=== PATIENT | male | born 1955 | race African-American/Black ===

== ENCOUNTER 2019-02-16 14:01 | Inpatient (IN) | payer OTHER ==
[~2019-02-16] VITALS: Ht 182.9 cm; Wt 84.3 kg
[2019-02-16] MEDS ORDERED: BP MEDS X 2 PO (14:19)
[2019-02-16 14:22] LABS: GLUCOSE,POINT OF CARE 108 MG/DL (70-110)
[2019-02-16] MEDS ORDERED: IOVERSOL 350 MG/ML 100 ML VIAL ONE (14:23)
[2019-02-16] MEDS ORDERED: SODIUM CHLORIDE 0.9% 100 ML ONE (14:23)
[2019-02-16 14:44] LABS: BASOPHILS % (AUTO) 0.7 % (0.0-2.0); EOSINOPHILS % (AUTO) 4.7 % (1.0-6.0); HEMATOCRIT 32.8 % (41-53); HEMOGLOBIN 10.2 g/dL (13.5-17.5); LYMPHOCYTES # (AUTO) 1.8 K/uL (1.0-4.8); LYMPHOCYTES % (AUTO) 28.5 % (22.0-44.0); MEAN CORPUSCULAR HEMOGLOBIN 23.5 pg (26.0-34.0); MEAN CORPUSCULAR HGB CONC 31.1 G/dL (31.0-37.0); MEAN CORPUSCULAR VOLUME 76 fL (80-100); MONOCYTES # (AUTO) 0.6 K/uL (0.1-1.0); MONOCYTES % (AUTO) 9.9 % (2.0-9.0); NEUTROPHILS # (AUTO) 3.6 K/uL (1.8-7.7); NEUTROPHILS % (AUTO) 56.2 % (40.0-70.0); PLATELET COUNT (AUTO) 476 K/uL (150-450); RED BLOOD CELL COUNT(AUTO) 4.34 MIL/uL (4.50-5.90); RED CELL DISTRIBUTION WIDTH 21.3 % (11.5-14.5)
[2019-02-16 15:03] LABS: ANION GAP 7 mmol/L (8-16); CALCIUM, TOTAL 9.1 mg/dL (8.8-10.5); CARBON DIOXIDE 30 mmol/L (22-29); CHLORIDE 103 mmol/L (98-107); CREATININE 1.07 mg/dL (0.60-1.30); GLOMERULAR FILTR. RATE CALC > 60 mL/min (>60); GLUCOSE,RANDOM 83 mg/dL (70-110); POTASSIUM 3.9 mmol/L (3.5-5.1); SODIUM SERUM 140 mmol/L (136-145); UREA NITROGEN, BLOOD 13 mg/dL (7-18)
[2019-02-16 15:09] LABS: ALANINE AMINOTRANSFERASE 17 U/L (12-78); ALBUMIN 3.4 g/dL (3.4-5.0); ALKALINE PHOSPHATASE 76 U/L (46-116); ASPARTATE AMINOTRANSFERASE 15 U/L (15-37); BILIRUBIN,TOTAL 0.2 mg/dL (0.1-1.0); TOTAL PROTEIN, SERUM 7.5 g/dL (6.4-8.2)
[2019-02-16 15:27] LABS: PLATELET MORPHOLOGY COMMENT INCREASED
[2019-02-16] MEDS ORDERED: ASPIRIN 325 MG TABLET PO ONE (15:45)
[2019-02-16 15:54] LABS: APPEARANCE,URINE CLEAR (CLEAR); BILIRUBIN,URINE NEGATIVE (NEGATIVE); GLUCOSE, URINE (UA) NEGATIVE (NEGATIVE); KETONES,URINE NEGATIVE (NEGATIVE); LEUKOCYTE ESTERASE ,URINE NEGATIVE (NEGATIVE); NITRATE,URINE NEGATIVE (NEGATIVE); OCCULT BLOOD,URINE NEGATIVE (NEGATIVE); PH,URINE 5.5 (5.0-8.0); PROTEIN,URINE NEGATIVE (NEGATIVE); UROBILINOGEN,URINE 0.2 mg/dL (<=1.0)
[2019-02-16 15:59] LABS: AMPHET/METH SCREEN,URINE POSITIVE (NEGATIVE); BARBITURATE SCREEN, URINE NEGATIVE (NEGATIVE); BENZODIAZEPINES SCREEN,URINE NEGATIVE (NEGATIVE); CANNABINOID SCREEN,URINE POSITIVE (NEGATIVE); COCAINE SCREEN,URINE NEGATIVE (NEGATIVE); METHADONE SCREEN, URINE NEGATIVE (NEGATIVE); OPIATE SCREEN,URINE NEGATIVE (NEGATIVE)
[2019-02-16 16:03] LABS: PHENCYCLIDINE SCREEN,URINE NEGATIVE (NEGATIVE)
[2019-02-16 16:20] LABS: BACTERIA,URINE Few /HPF (None Seen); RBC,URINE 0-2 /HPF (0-2); SQUAMOUS EPITHELIAL CELL,UR Few /LPF (None Seen)
[2019-02-16 17:14] VITALS: BP 160/108
[2019-02-16 19:42] VITALS: BP 145/93
[2019-02-16] MEDS ORDERED: ALBUTEROL SULFATE 2.5 MG/0.5 ML NEB SOLUTION NEB PRN (21:15)
[2019-02-16] MEDS ORDERED: ONDANSETRON HCL 4 MG/2 ML VIAL IVP PRN (21:15)
[2019-02-16] MEDS ORDERED: MORPHINE SULFATE 2 MG/ML SYRINGE IVP PRN (21:15)
[2019-02-16] MEDS ORDERED: HYDROCODONE/ACETAMINOPHEN 5-325 MG TABLET PO PRN (21:15)
[2019-02-16] MEDS ORDERED: MAGNESIUM HYDROXIDE SUSPENSION 30 ML UDCUP PO PRN (21:15)
[2019-02-16] MEDS ORDERED: ACETAMINOPHEN 325 MG TABLET PO PRN (21:15)
[2019-02-16] MEDS ORDERED: IPRATROPIUM BROMIDE 0.5 MG/2.5 ML NEB SOLUTION NEB PRN (21:15)
[2019-02-16] MEDS ORDERED: BISACODYL 10 MG RECTAL RECTAL SUPPOSITORY PR PRN (21:15)
[2019-02-16] MEDS ORDERED: ZOLPIDEM TARTRATE 5 MG TABLET PO PRN (21:15)
[2019-02-16] MEDS ORDERED: ATORVASTATIN CALCIUM 10 MG TABLET PO SCH (22:30)
[2019-02-17 00:04] VITALS: BP 159/91
[2019-02-17] MEDS: HEPARIN SODIUM,PORCINE 5,000 UNITS/ML VIAL SQ SCH ×4 (00:08→23:28)
[2019-02-17 05:43] VITALS: BP 159/91
[2019-02-17 07:00] LABS: CHOL/HDL RATIO 3.2 (4.2-7.3); THYROID STIMULATING HORMONE 0.49 uIU/mL (0.36-3.74)
[2019-02-17] MEDS: DOCUSATE SODIUM 100 MG CAPSULE PO SCH ×2 (07:51→21:00)
[2019-02-17 07:55] VITALS: BP 149/84
[2019-02-17 10:57] VITALS: BP 143/88
[2019-02-17] MEDS: ASPIRIN 81 MG CHEWABLE TABLET PO SCH (12:04)
[2019-02-17] MEDS: ATORVASTATIN CALCIUM 20 MG TABLET PO SCH (12:04)
[2019-02-17 16:25] VITALS: BP 148/82
[2019-02-17 19:25] VITALS: BP 160/82
[2019-02-17] MEDS ORDERED: ATORVASTATIN CALCIUM 10 MG TABLET PO SCH (21:00)
[2019-02-17] MEDS ORDERED: AmLODIPine BESYLATE 5 MG TABLET PO ONE (23:45)
[2019-02-18 00:13] VITALS: BP 166/98
[2019-02-18 05:14] VITALS: BP 154/89
[2019-02-18 07:38] VITALS: BP 146/90
[2019-02-18] MEDS ORDERED: AmLODIPine BESYLATE 5 MG TABLET PO SCH (09:00)
[2019-02-18] MEDS ORDERED: GADOBUTROL 1 MMOL/ML 10 ML VIAL IVP ONE (10:32)
[2019-02-18 11:38] VITALS: BP 158/98
[2019-02-18] MEDS: HEPARIN SODIUM,PORCINE 5,000 UNITS/ML VIAL SQ SCH (11:50)
[2019-02-18] MEDS: ATORVASTATIN CALCIUM 20 MG TABLET PO SCH (11:51)
[2019-02-18] MEDS: ASPIRIN 81 MG CHEWABLE TABLET PO SCH (11:51)
[2019-02-18] MEDS: DOCUSATE SODIUM 100 MG CAPSULE PO SCH (11:51)
[2019-02-18 15:15] LABS: GLUCOMETER DEV NAME(LOC) 5N.2; GLUCOSE,POINT OF CARE 111 MG/DL (70-110)
[2019-02-18 15:26] VITALS: BP 122/76
[2019-02-18] MEDS ORDERED: ASPI81 PO (16:05)
[2019-02-18] MEDS ORDERED: AMLO5TAB9 PO (16:09)
== END 2019-02-18 16:30 | disposition home or self-care (01) | DRG 47 ==
LOC: EMS 14:02 → 5S 16:04
PROVIDERS: ADMIT Hospitalist; ATTEND Hospitalist
DX: G45.9 Transient cerebral ischemic attack, unspecified (principal); G92 Toxic encephalopathy; D64.9 Anemia, unspecified; S76.112A Strain of left quadriceps muscle, fascia and tendon, initial encounter; D47.3 Essential (hemorrhagic) thrombocythemia; F19.10 Other psychoactive substance abuse, uncomplicated; I67.2 Cerebral atherosclerosis; M25.462 Effusion, left knee; I10 Essential (primary) hypertension; M76.52 Patellar tendinitis, left knee; X58.XXXA Exposure to other specified factors, initial encounter; Y93.89 Activity, other specified; Y92.89 Other specified places as the place of occurrence of the external cause; Y99.8 Other external cause status; Z91.19 Patient's noncompliance with other medical treatment and regimen
CPT/HCPCS: 70496; 70553; 73721; 82948; 83036; 84443; 86850; 86900; 86901; 87086; 92610; 93005; 93880; 97116; 97162; 97165; 97530; 97535; 99291; A9585; J1644; J7050

== ENCOUNTER 2023-03-16 13:28 | Emergency (ER) | payer MEDICARE, OTHER ==
[~2023-03-16] VITALS: Ht 182.9 cm; Wt 81.8 kg
[~2023-03-16 13:28] MED LIST: AMLO-257 PO; ASPI-1450 PO
[2023-03-16 13:33] VITALS: TEMP 98.8
[2023-03-16 13:57] VITALS: BP 170/99; PULSE 82; RESP 16
[2023-03-16] MEDS ORDERED: CLOP75TA32 PO (14:30)
[2023-03-16] MEDS ORDERED: LIDOCAINE 1% 10 ML VIAL SQ ONE (14:30)
[2023-03-16] MEDS ORDERED: SPIR-37 PO (14:30)
[2023-03-16] MEDS ORDERED: ATOR-2 PO (14:30)
[2023-03-16] MEDS ORDERED: EMPA10TA3 PO (14:30)
[2023-03-16] MEDS ORDERED: CEPHALEXIN MONOHYDRATE 500 MG CAPSULE PO ONE (14:30)
[2023-03-16] MEDS ORDERED: CARV25 PO (14:30)
[2023-03-16] MEDS ORDERED: IBUPROFEN 600 MG TABLET PO ONE (14:30)
[2023-03-16] MEDS ORDERED: DOXYCYCLINE HYCLATE 100 MG TABLET PO ONE (14:30)
[2023-03-16] MEDS ORDERED: ACETAMINOPHEN/CODEINE 300-30 MG TABLET PO ONE (14:30)
[2023-03-16] MEDS ORDERED: LOSA100T59 PO (14:30)
[2023-03-16] MEDS ORDERED: IBUP-1554 PO (16:09)
[2023-03-16] MEDS ORDERED: CEPH-558 PO (16:09)
[2023-03-16] MEDS ORDERED: DOXY-354 PO (16:09)
[2023-03-16] MEDS ORDERED: TERB250T90 PO (16:14)
[2023-03-16] MEDS ORDERED: PERTUSS(ACELL),DIPH,TET VAC/PF 0.5 ML SYRINGE IM. ONE (16:15)
== END 2023-03-16 16:34 | disposition home or self-care (01) ==
LOC: EMS 13:28
DX: B35.1 Tinea unguium (principal); L02.511 Cutaneous abscess of right hand; I10 Essential (primary) hypertension
CPT/HCPCS: 99284; 26010; 90715; 90471; J3490

== ENCOUNTER 2024-06-17 14:34 | Emergency (ER) | payer MEDICARE, OTHER ==
[~2024-06-17] VITALS: Ht 182.9 cm; Wt 86.4 kg
[~2024-06-17 14:34] MED LIST changes: +ATOR-2 PO; +CARV25 PO; +CEPH-558 PO; +CLOP75TA32 PO; +DOXY-354 PO; +EMPA10TA3 PO; +IBUP-1554 PO; +LOSA100T59 PO; +SPIR-37 PO; +TERB250T90 PO
[2024-06-17 14:53] VITALS: TEMP 97.9
[2024-06-17] MEDS: BACITRACIN 28 GM OINTMENT TP ONE (17:03)
[2024-06-17 17:20] VITALS: BP 143/91; PULSE 92; RESP 18; O2SAT 99
== END 2024-06-17 17:29 | disposition home or self-care (01) ==
LOC: EMS 14:34
DX: S30.812A Abrasion of penis, initial encounter (principal); I10 Essential (primary) hypertension; X58.XXXA Exposure to other specified factors, initial encounter; Y93.89 Activity, other specified; Y92.89 Other specified places as the place of occurrence of the external cause; Y99.8 Other external cause status
CPT/HCPCS: 99282; Z7502; Z7610